=== PATIENT | male | born 1995 ===

== ENCOUNTER → 2020-12-09 13:04 | Outpatient (CLI) | payer OTHER, SELFPAY ==
[2020-12-09] MEDS: COVID-19 VACC(MODERNA-1)/PF 100 MCG/0.5 ML VIAL IM (13:10)
== END ==
PROVIDERS: Visit Provider Internal Medicine
DX: Z23 Encounter for immunization (principal)
CPT/HCPCS: 0011A; 91301

== ENCOUNTER → 2021-01-06 13:08 | Outpatient (CLI) | payer OTHER, SELFPAY ==
[2021-01-06] MEDS: COVID-19 VACC #2, MRNA(MOD) 100 MCG/0.5 ML VIAL IM (13:17)
== END ==
PROVIDERS: Visit Provider Internal Medicine
DX: Z23 Encounter for immunization (principal)
CPT/HCPCS: 0012A; 91301